=== PATIENT | male | born 1980 | race Asian ===

== ENCOUNTER 2019-02-12 03:37 | Emergency (ER) | payer OTHER ==
[~2019-02-12] VITALS: Ht 152.4 cm; Wt 68.2 kg
[2019-02-12] MEDS ORDERED: DiphenhydrAMINE HCL 25 MG CAPSULE PO ONE (04:45)
[2019-02-12] MEDS ORDERED: PredniSONE 20 MG TABLET PO ONE (04:45)
[2019-02-12 05:00] VITALS: BP 132/80
== END 2019-02-12 05:05 | disposition home or self-care (01) ==
LOC: EMS 03:40
DX: T78.1XXA Other adverse food reactions, not elsewhere classified, initial encounter (principal); X58.XXXA Exposure to other specified factors, initial encounter
CPT/HCPCS: 99283; J7512

== ENCOUNTER 2025-07-10 17:33 | Emergency (ER) | payer OTHER ==
[~2025-07-10] VITALS: Ht 165.1 cm; Wt 65.9 kg
[2025-07-10] MEDS: ACETAMINOPHEN 500 MG TABLET PO ONE (18:48)
[2025-07-10] MEDS: LIDOCAINE 5% TRANSDERMAL PATCH TD ONE (18:49)
[2025-07-10] MEDS: KETOROLAC TROMETHAMINE 30 MG/ML VIAL IM ONE (18:49)
[2025-07-10 19:35] VITALS: BP 110/66; PULSE 70; RESP 16; TEMP 97.905272; O2SAT 98
[2025-07-10] MEDS ORDERED: IBUP-1492 PO (19:42)
[2025-07-10] MEDS ORDERED: ACET-2247 PO (19:42)
== END 2025-07-10 20:05 | disposition home or self-care (01) ==
LOC: EMS 17:33
DX: S86.911A Strain of unspecified muscle(s) and tendon(s) at lower leg level, right leg, initial encounter (principal); M54.50 Low back pain, unspecified; V49.40XA Driver injured in collision with unspecified motor vehicles in traffic accident, initial encounter; Y93.89 Activity, other specified; Y92.410 Unspecified street and highway as the place of occurrence of the external cause; Y99.8 Other external cause status
CPT/HCPCS: 99283; 73562; 96372; J1885